=== PATIENT | male | born 1950 | race Caucasian/White ===

== ENCOUNTER 2020-12-14 07:23 | Outpatient (CLI) | payer MEDICARE, SELFPAY ==
--- NOTE | ~2020-12-14 | US_ITS ---
EXAMINATION: US aorta DATE: 12/14/2020 09:08 INDICATION: Abdominal aortic aneurysm screening TECHNIQUE: Grayscale, color Doppler, and pulsed Doppler images of the aorta and common iliac arteries were obtained. COMPARISON: None. FINDINGS: The proximal aorta is nondilated but suboptimally visualized which precludes accurate measurements. T he mid aorta measures 3.0 cm. Unchanged fusiform ectasia of the distal infrarenal aorta measuring up to 3.3 cm in maximal diameter. The right common iliac artery measures 1.3 cm. The left common iliac a rtery measures 1.3 cm. IMPRESSION: 1. Unchanged fusiform ectasia of the infrarenal aorta measuring up to 3.3 cm in maximal diameter. Reviewed, dictated and finalized at location A.
== END 2020-12-14 07:24 | disposition home or self-care (01) ==
LOC: ANHIMG 07:25
PROVIDERS: PCP Family Medicine; Visit Provider Family Medicine
DX: I71.4 Abdominal aortic aneurysm, without rupture (principal)
CPT/HCPCS: 76775

== ENCOUNTER 2021-04-18 09:15 | Outpatient (RCR) | payer MEDICARE, SELFPAY ==
[2021-04-18 11:45] VITALS: BP 130/68; PULSE 64; RESP 20; TEMP 36.7; O2SAT 99
[2021-04-18] MEDS: FAMOTIDINE 20 MG TABLET PO (11:50)
[2021-04-18] MEDS: diphenhydrAMINE HCl CAP 25 MG CAPSULE PO (11:50)
[2021-04-18] MEDS: ACETAMINOPHEN 325 MG TABLET 650 MG PO (11:50)
[2021-04-18 13:22] VITALS: BP 119/68
--- NOTE | 2021-04-19 08:54 | PC.NURSE ---
Patient states he is feeling much better, no longer having a sore throat.
== END 2021-04-18 17:00 ==
LOC: AMCINF 09:15
PROVIDERS: PCP Family Medicine; Referring Provider Family Medicine; Visit Provider Internal Medicine Hematology & Oncology
DX: U07.1 COVID-19 (principal); I10 Essential (primary) hypertension; I25.10 Atherosclerotic heart disease of native coronary artery without angina pectoris
CPT/HCPCS: A9270; M0243; Q0243

== ENCOUNTER 2024-01-22 08:41 | Outpatient (CLI) | payer MEDICARE, SELFPAY | END 2024-01-22 08:42 | disposition home or self-care (01) | LOC: ANHAUDIO 08:45 | PROVIDERS: PCP Family Medicine; Visit Provider Family Medicine | DX: H90.3 Sensorineural hearing loss, bilateral (principal); H93.13 Tinnitus, bilateral | CPT/HCPCS: 92557; 92567 ==

== ENCOUNTER 2024-01-30 14:33 | Outpatient (CLI) | payer MEDICARE, SELFPAY ==
--- NOTE | ~2024-01-30 | US_ITS ---
EXAMINATION: US aorta DATE: 01/30/2024 15:12 INDICATION: Abdominal aortic aneurysm without rupture TECHNIQUE: Grayscale, color Doppler, and pulsed Doppler images of the aorta and common iliac arteries were obtained. COMPARISON: None. FINDINGS: The proximal aorta measures 1.5 cm. The mid aorta measures 1.7 cm. The distal aorta measures 1.6 cm. The right common iliac artery measures 8 mm. The left common iliac artery measures 8 mm. IMPRESSION: 1. Normal caliber abdominal aorta. Reviewed, dictated and finalized at location B.
== END 2024-01-30 14:34 | disposition home or self-care (01) ==
PROVIDERS: PCP Family Medicine; Visit Provider Internal Medicine Cardiovascular Disease
DX: I71.40 Abdominal aortic aneurysm, without rupture, unspecified (principal)
CPT/HCPCS: 76775

== ENCOUNTER 2024-03-29 07:19 | Outpatient (CLI) | payer MEDICARE, SELFPAY ==
--- NOTE | ~2024-03-29 | CT_ITS ---
EXAMINATION: CT abdomen pelvis wo/w con DATE: 03/29/2024 08:30 INDICATION: Gross hematuria TECHNIQUE: Computed tomography (CT) of the abdomen and pelvis was performed without intravenous contr ast. CT of the abdomen and pelvis was then performed with a total of 130 mL Omnipaque-350 intravenous contrast using a double-bolus technique for simultaneous opacification of the renal parenchyma and r enal collecting system. Automated exposure control and iterative reconstruction technique were employ ed. The dose-length product was 1640.68 mGy-cm. COMPARISON: None FINDINGS: Mild atelectasis/scarring at the basilar lingula and right middle lobe. Heart size is normal. Atheros clerotic coronary artery calcifications. Aortic valve calcific location. No pericardial or pleural ef fusion. Small sliding-type hiatal hernia. 11 mm cyst in the left hepatic lobe. Gallbladder, spleen an d pancreas are normal. Bilateral low-attenuation adrenal adenomas the larger on the right measuring 2 .5 x 1.5 cm and measuring 9HU. There are couple 2 mm nonobstructing stones at the lower pole calyces of the right kidney. Minimal symmetric bilateral renal parenchymal enhancement. The bilateral renal c ollecting systems and ureters are opacified in their entirety with no filling defects or urothelial i rregularities. Subtle trabeculation of the bladder wall which could be related to chronic outlet obst ruction from the enlarged prostate which measures 4.0 x 3.9 cm. There are few scattered colonic diver ticula without adjacent inflammatory stranding to suggest diverticulitis. The appendix is not visuali zed. No pericecal inflammatory change to suggest acute appendicitis. No bowel obstruction. There is c alcified atherosclerosis of the aorta and many of the other arteries. 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 No pathologically enlarged abdominal or pelvic lymphad enopathy. Moderate lower thoracic and lower lumbar spondylosis. IMPRESSION: 1. A couple 2 mm nonobstructing right renal stones. 2. Prostatomegaly. 3. 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 Reviewed, dictated and finalized at location B. HOUSE ATTENDANT IMPRESSION: 1. A couple 2 mm nonobstructing right renal stones. 2. Prostatomegaly. 3. 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
--- NOTE | ~2024-03-29 | XR_ITS ---
XR abdomen/kub 1V Ordering provider: Demarcus Ferrell MD History: . GROSS HEMATURIA . Comparison: The FINDINGS: BOWEL: Nonobstructive bowel gas pattern. ORGANOMEGALY: None. SIGNIFICANT PATHOLOGIC CALCIFICATIONS: None. Calcific area is seen adjacent to the disc L4-L5 bilaterally which may be an osteophyte formation. Po ssibility of a stone cannot be excluded. Similar appearances seen on the right side. Follow-up noncon trast CT is advised. OTHER: No free air is seen under the diaphragm. IMPRESSION: NO ACUTE ABDOMINAL FINDINGS. Possibility of a stone at the level of L4-L5 on the left side cannot be excluded. Noncontrast CT eval uation is advised. Reviewed, dictated and finalized at location A. ATRIC LPN IMPRESSION: NO ACUTE ABDOMINAL FINDINGS. Possibility of a stone at the level of L4-L5 on the left side cannot be exclude d. Noncontrast CT evaluation is advised.
[2024-03-29 08:14] LABS: Estimated Glomerular Filt Rate > 60
== END 2024-03-29 07:20 | disposition home or self-care (01) ==
PROVIDERS: PCP Family Medicine; Visit Provider Urology
DX: N20.0 Calculus of kidney (principal); N40.0 Benign prostatic hyperplasia without lower urinary tract symptoms; I72.3 Aneurysm of iliac artery; R31.0 Gross hematuria
CPT/HCPCS: 74018; 74178; Q9967

== ENCOUNTER 2024-05-07 07:57 | Outpatient (CLI) | payer MEDICARE, SELFPAY ==
--- OUTSIDE RECORDS SUMMARY | 2024-06-17 08:02 | XMS_ITS | Encounter Summary ---
Author Organization [facility] Address [address] [place] [address] Phone Care Team Providers Care Ambulatory Nurse Name Role Phone Jayson Hamilton MD Primary Care Provider [phone] Encounter Details Date Type Department Care Team (Latest Contact Info) Description 12/02/2022 Orders Only [facility] Scanning, Provider Social History Tobacco Use Types Packs/Day Years Used Date Smoking Tobacco: Former Cigarettes 1 1 - 1983 Smokeless Tobacco: Never Alcohol Use Standard Drinks/Week Comments Yes 0 (1 standard drink = 0.6 oz pur e alcohol) rarely AUDIT-C Answer Date Recorded Q1: How often do you have a drink containing alcohol? Never 09/10/2022 Q2: How many drinks containi ng alcohol do you have on a typical day when you are drinking? Patient does not drink Q3: How often do you have si x or more drinks on one occasion? Never 09/10/2022 Personal Safety Answer Date Recorded Have you ever been in or are you currently in a harmful physical or emotional relationship or is someone making you feel afraid or unsafe? 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 On simvastatin 20mg q hs TC 109, LDL 46, HDL 39, Tri 139 * Jenni Kulkarni RN - 12/02/2022 11:59 PM CDT Images from the original note were not included. Dariel Collier MD LDL good Same meds I Lmor for pt with results and recommendations. documented in this encounter Plan of Treatment Not on file documented as of this encounter Procedures Procedure Name Priority Date/Time Associated Diagnosis Comments SCAN - LABS 12/02/2022 documented in this encounter Results * SCAN - LABS (12/02/2022) us Provider Scanning Final Result documented in this encounter Visit Diagnoses Not on filedocumented in this encounter Care Teams Ambulatory Nurse Relationship Specialty Start Date End Date Jayson Hamilton MD PCP - General 12/24/16 documented as of this encounter
--- OUTSIDE RECORDS SUMMARY | 2024-06-17 08:02 | XMS_ITS | Referral Summary ---
Author Organization [facility] Address [address] [place] [address] Care Team Providers Care Core Blower Operator Name Role Phone Jayson Hamilton MD Primary Care Provider [phone] [phone] Allergies Active Allergy Reactions Criticality Noted Date Comments Latex Itching,Rash Medium bandaides Medications finasteride (PROSCAR) 5 mg tabletIndication s:benign prostatic hyperplasia with lower urinary tract sx Take 1 tablet (5 mg total) by mouth nightly 2 8 Active irbesartan (AVAPRO) 150 mg tabletIndication s:hypertension Take 1 tablet (150 mg total) by mouth every morning 8 Active metoprolol XL (TOPROL-XL) 50 mg 24 hr tabletIndication s:hypertension Take 1 tablet (50 mg total) by mouth nightly 0 8 Active aspirin 81 mg tabletIndication s:prevention of thrombosis,preve ntion Take 1 tablet (81 mg total) by mouth every morning 0 Active simvastatin (ZOCOR) 20 mg tabletIndication s:hyperlipidemia Take 1 tablet (20 mg total) by mouth nightly 3 8 Active amLODIPine (NORVASC) 5 mg tabletIndication s:hypertension Take 1 tablet (5 mg total) by mouth every morning 0 Active nitroglycerin (Nitrostat) 0.[address] 1 tablet under the tongue ever 5 minutes for up to 3 doses as needed for chest pain. Call 911 if pain persists. 25 tablet 3 2 Active polyethylene glycol (GoLYTELY) 236-22.74-6.74 -5.86 gram solutionIndicati ons:Colonoscopy On 09/09/22 at 6 PM, drink 1/2 jug of the Nulytely/Golyte ly, then on 09/10/2022 at 2:00 AM drink the other 1/2 jug of the Nulytely/Golyte ly until completely gone. 4000 mL 3 Active Additional Information Patient not taking.Reported on 01/07/2023 methIMAzole (TAPAZOLE) 5 mg tablet Take 1 tablet (5 mg total) by mouth daily 3 Active metFORMIN XR (GLUCOPHAGE XR) 500 mg 24 hr tablet Take 1 tablet (500 mg total) by mouth 2 (two) times a day 4 Active Active Problems Problem Noted Date Diagnosed Date Abdominal aortic aneurysm (AAA) without rupture 01/08/2021 Nuclear sclerotic cataract of right eye 11/03/19 21 Overview (11/02/2020): Added automatically from request for surgery [id number] Positive colorectal cancer screening using Colog uard test 10/01/2018 Overview (10/01/2018): Added automatically from request for surgery [id number] Coronary arteriosclerosis in [place] artery 10/01 Overview (08/28/2017): Description: Coronary Artery Disease Hyperlipidemia 10/01/2010 Overview (08/28/2017): Description: Hyperlipidemia Hypertension 10/01/2010 Overview (08/28/2017): Description: Hypertension Immunizations Name Administration Dates Next Due Influenza, Quadrivalent, Rec ombinant, Egg Free, Preservative Free, Intramuscular 02/18/2020,03/15/2019 Influenza, Quadrivalent, Spl it, Preservative Free, Intramuscular 02/18/2018 Influenza, Trivalent, Preservative Free, Intramu scular 03/04/2011 Moderna SARS-CoV-2 Monovalent Vaccination (12+ Y RS) 08/18/2020,07/21/2020 Tdap 11/25/2023 Social History Tobacco Use Types Packs/Day Years Used Date Smoking Tobacco: Former Cigarettes 1 1 - 1983 Smokeless Tobacco: Never Tobacco Cessation:Counseling Given: Not Answered Alcohol Use Standard Drinks/Week Comments Yes 0 [...] on file 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 Gender Identity Not on file Sexual Orientation Not on file Last Filed Vital Signs Vital Sign Reading Time Taken Comments Blood Pressure 148/78 12/31/2023 9:59 AM CDT Pulse 59 12/31/2023 9:59 AM CDT Temperature 36 ??C (96.8 ??F) 09/10/2022 8:46 AM CDT Respiratory Rate 16 09/10/2022 9:26 AM CDT Oxygen Saturation 96% 12/31/2023 9:59 AM CDT Inhaled Oxygen Concentration - - Weight 87.1 kg (192 lb) 12/31/2023 9:59 AM CDT Height 172.7 cm (5' 8 ) 12/31/2023 9:59 AM CDT Body Mass Index 29.19 12/31/2023 9:59 AM CDT Plan of Treatment Not on file Medical Devices Implanted Type Area Wave Solder Offbearer Device Identifier Shelf Expiration Date Model / Serial / Lot [employer] [id number] Lens Iol Tecnis Smplcty 1-Pc Clr [place] 17.5 Diopter - [id number] - [id number] Implanted:Qty: 1 on 11/28/2020 by Marissa Henning MD at [facility] Lens Right: Lens [employer] 06/24/2023 [id number] / [id number] / [employer] [id number] Lens Iol Tecnis Smplcty 1-Pc Clr [place] 17.5 Diopter - [id number] - [id number] Implanted:Qty: 1 on 01/30/2021 by Marissa Henning MD at [facility] Medicine Lens Left: Eye Chloe [employer] 06/24/2023 [id number] / [id number] / 0 Stent Stent Heart Explanted Type Area Wave Solder Offbearer Device Identifier Shelf Expiration Date Model / Serial / Lot Chloe [employer] [id number] Lens Iol Tecradha Dossplcty 1-Pc Clr Cidra 17.5 Diopter - [id number] - [id number] Explanted:Qty: 1 on 11/28/2020 by Marissa Henning MD at [facility] Lens Right: Lens Chloe [employer] 06/24/2023 [id number] / [id number] / Procedures Procedure Name Priority Date/Time Associated Diagnosis Comments COLONOSCOPY 09/10/2022 7:56 AM CDT from Last 3 Months or Most Recently Relevant to Health Maintenance Results * COLONOSCOPY (09/10/2022 7:56 AM CDT) Anatomical Region Laterality Modality Other Narrative Procedure Note Yolanda Varela MD PhD - 09/10/2022 7:56 AM CDT [facility] Patient Name: Xander Burrell Procedure Date: 09/10/2022 7:56 AM Date of : 1950 Admit Type: Outpatient Age: 72 Gender: Male Attending MD: Yolanda Varela M.D. Room: [facility] ENDOSCOPY ROOM 3 Note Status: Finalized Procedure: Colonoscopy Indications: High risk colon cancer surveillance: Personalhistory of colonic polyps Referring MD: Jayson Hamilton M.D. Providers: Yolanda Varela M.D. Medicines: Monitored Anesthesia Care Complications: No immediate complications. Estimated Blood Loss: Estimated blood loss was minimal. Procedure: Pre-Anesthesia Assessment: - Immediately prior to administration ofmedications, the patient was re-assessed for adequacy to receive sedatives. - The risks and benefits of the procedure and the sedation options and risks were discussed with the patient. All questions were answered and informed consent was obtained. The benefits, risks and alternatives of theprocedure and sedation were discussed and informed consentwas obtained. All questions were answered. Please referto the signed informed consent document in the medical record. The scope was passed under direct vision.The CF [id number] endoscope was introduced through the anus and advanced to the terminal ileum, with identification of the appendiceal orifice and IC valve. The colonoscopy was technically difficultand complex due to poor endoscopic visualization. Successful completion of the procedure was aided by lavage. The colonoscopy was technically difficultand complex due to significant looping. Successful completion of the procedure was aided by performing the maneuvers documented (below) in this report.The quality of the bowel preparation was adequate. The quality of the bowel preparation was evaluatedusing the BBPS ([place] Bowel Preparation Scale) withscores of: Right Colon = 2 (minor amount of residual staining, small fragments of stool and/or opaque liquid, but mucosa seen well), Transverse Colon = 3 (entire mucosa seen well with no residual staining, small fragments of stool or opaque liquid) and Left Colon = 2 (minor amount of residual staining, small fragments of stool and/or opaque liquid, but mucosa seen well). The total BBPS score equals 7.The bowel preparation used was GoLYTELY via split dose instruction. Findings: The terminal ileum appeared normal. Two sessile polyps were found in the ascending colon. The polyps were3 to 4 mm in size. These polyps were removed with a jumbo cold forceps. Resection and retrieval were complete. Estimated blood loss wasminimal. A 3 mm polyp was found in the rectum. The polyp was sessile. Thepolyp was removed with a jumbo cold forceps. Resection and retrieval were complete. Estimated blood loss was minimal. An 10 mm polyp was found in the rectum. The polyp was sessile. Thepolyp was removed with a cold snare. Resection and retrieval were complete. Estimated blood loss was minimal. Multiple small and large-mouthed diverticula were found in thesigmoid colon and cecum. Internal hemorrhoids were found during retroflexion. Impression: - The examined portion of the ileum was normal. - Two 3 to 4 mm polyps in the ascending colon,removed with a jumbo cold forceps. Resected andretrieved. - One 3 mm polyp in the rectum, removed with ajumbo cold forceps. Resected and retrieved. - One 10 mm polyp in the rectum, removed with acold snare. Resected and retrieved. - Diverticulosis in the sigmoid colon and in thececum. - Internal hemorrhoids. Recommendation: - [facility] Attending Participation: I personally performed the entire procedure. Electronically signed by Yolanda Varela MD Yolanda Varela M.D. 09/10/2022 8:49:33 AM . Number of Addenda: 0 Note Initiated On: 09/10/2022 7:56 AM Recognized by the [place] [employer] for promoting quality in endoscopy us Yolanda Varela MD PhD ENDOSCOPY PROCEDURES Final Resu lt from Last 3 Months or Most Recently Relevant to Health Maintenance Insurance MEDICARE [facility] MEDICARE [facility] MEDICARE [facility] Advance Directives For more information, please contact: [phone] * Full Code (Latest Code Status on File) Date Activated Date Inactivated Comments 09/10/2022 7:11 AM 09/10/2022 1:38 PM * Full Code Date Activated Date Inactivated Comments 01/30/2021 6:34 AM 01/30/2021 2:41 PM * Full Code Date Activated Date Inactivated Comments 11/27/2020 7:57 PM 11/28/2020 12:38 PM * Full Code Date Activated Date Inactivated Comments 11/05/2018 10:58 AM 11/05/2018 5:50 PM Care Teams Core Blower Operator Relationship Specialty Start Date End Date Jayson Hamilton MD PCP - General 12/24/16
--- OUTSIDE RECORDS SUMMARY | 2024-06-17 08:02 | XMS_ITS | Encounter Summary ---
Author Organization [facility] Address [address] [place] [address] Phone Care Team Providers Care Slot Shift Supervisor Name Role Phone Jayson Hamilton MD Primary Care Provider [phone] [phone] Encounter Details Date Type Department Care Team (Latest Contact Info) Description 10/09/2020 Orders Only [facility] Scanning, Provider Social History Tobacco Use Types Packs/Day Years Used Date Smoking Tobacco: Former Smokeless Tobacco: Never Comments:quit age 30 Alcohol Use Standard Drinks/Week Comments Yes 0 (1 standard drink = 0.6 oz pur e alcohol) rarely Sex and Gender Information Value Date Recorded Sex Assigned at Not on file 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 Gender Identity Not on file Sexual Orientation Not on file documented as of this encounter Progress Notes * Jenni Kulkarni RN - 10/09/2020 11:59 PM CDT Labs from PCP, T4 and TSH * Dariel Collier MD - 10/09/2020 11:59 PM CDT normal documented in this encounter Plan of Treatment Not on file documented as of this encounter Procedures Procedure Name Priority Date/Time Associated Diagnosis Comments SCAN - LABS 10/09/2020 documented in this encounter Results * SCAN - LABS (10/09/2020) us Provider Scanning Final Result documented in this encounter Visit Diagnoses Not on filedocumented in this encounter Care Teams Slot Shift Supervisor Relationship Specialty Start Date End Date Jayson Hamilton MD PCP - General 12/24/16 documented as of this encounter
--- OUTSIDE RECORDS SUMMARY | 2024-06-17 08:02 | XMS_ITS | Clinical Summary ---
Author Organization [facility] Address [address] [place] [address] Care Team Providers Care Data Reduction Technician Name Role Phone Jayson Hamilton MD Primary Care Provider [phone] [phone] Allergies Active Allergy Reactions Criticality Noted Date [...] (11/02/2020): Added automatically from request for surgery [id number] Positive colorectal cancer screening using Colog uard test 10/01/2018 Overview (10/01/2018): Added automatically from request for surgery [id number] Coronary arteriosclerosis in [place] artery 10/01 Overview (08/28/2017): Description: Coronary Artery Disease Hyperlipidemia 10/01/2010 Overview (08/28/2017): Description: Hyperlipidemia Hypertension 10/01/2010 Overview (08/28/2017): Description: Hypertension Immunizations Name Administration Dates Next Due Influenza, Quadrivalent, Rec ombinant, Egg Free, Preservative Free, Intramuscular 02/18/2020,03/15/2019 Influenza, Quadrivalent, Spl it, Preservative Free, Intramuscular 02/18/2018 Influenza, Trivalent, Preservative Free, Intramu scular 03/04/2011 Moderna SARS-CoV-2 Monovalent Vaccination (12+ Y RS) 08/18/2020,07/21/2020 Tdap 11/25/2023 Surgical History Surgery Date Site/Laterality Comments APPENDECTOMY 05/19/1959 - 05/18/[address] ENT PLACEMENT 05/19/2008 - 05/18/2009 RCA ABDOMINAL ADHESION SURGERY age 17 CATARACT EXTRACTION 11/16/2020 - 12/16/2020 Right Medical History Medical History Date Comments CAD (coronary artery disease) 2018 Xi ence 2.5x23mm ALKA to RCA by Dr. 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 Gender Identity Not on file Sexual Orientation Not on file Obstetrics History Last Filed Vital Signs Vital Sign Reading [...] 12/31/2023 9:59 AM CDT Plan of Treatment Health Maintenance Due Date Last Done Comments Depression Screening 1950 Hepatitis C Screening 1950 Hepatitis B Screening 1968 Zoster Vaccine (1 of 2) 2000 Pneumococcal vaccine 65+ (1 of 1 - PCV) 2015 Well Visit 65+ 2015 Fall Risk Assessment 09/11/2023 09/10/2022 Covid-19 Vaccine (3 - 2023-2 5 season) 2024 08/18/2020, 07/21/2020 Influenza Vaccine (#1) 2024 , 03/15/2019, 02/18/2018, Additional history exists Colon Cancer Screening-Colonoscopy 09/10/2032 09/10/2022, 11/05/2018 DTaP/Tdap/Td Vaccine (2 - Td or Tdap) 11/24/2033 11/25/2023 Colon Cancer Screening-CT Colonography Discontinued 09/10/2022, 11/05/2018 Colon Cancer Screening-DNA Stool Discontinued 09/11/19, 11/05/2018 Colon Cancer Screening-FIT Discontinued 09/10/2022, Colon Cancer Screening-Sigmoidoscopy Discontinued 09/10/2022, 11/05/2018 Abdominal Aortic Aneurysm (A AA) Screen Completed 01/29/2024, 01/07/2024, 12/31/2023, Additional history exists Medical Devices Implanted Type Area Carbide Tool Maker Device Identifier Shelf Expiration Date Model / Serial / Lot Chloe [email or web address] [id number] Lens Iol Tecnis Smplcty 1-Pc Clr [place] 17.5 Diopter - [id number] - [id number] Implanted:Qty: 1 on 11/28/2020 by Marissa Henning MD at [facility] Lens Right: Lens [employer] 06/24/2023 [id number] / [id number] / [employer] [id number] Lens Iol Tecnis Smplcty 1-Pc Clr [place] 17.5 Diopter - [id number] - [id number] Implanted:Qty: 1 on 01/30/2021 by Marissa Henning MD at [facility] Lens Left: Eye [employer] 06/24/2023 [id number] / [id number] / 0 Stent Stent Heart Explanted Type Area Carbide Tool Maker Device Identifier Shelf Expiration Date Model / Serial / Lot [employer] [id number] Lens Iol Tecnis Smplcty 1-Pc Clr [place] 17.5 Diopter - [id number] - [id number] Explanted:Qty: 1 on 11/28/2020 by Marissa Henning MD at [facility] Lens Right: Lens [employer] 06/24/2023 [id number] / [id number] / Procedures Procedure Name Priority Date/Time Associated [...] Male Attending MD: Yolanda Varela M.D. Room: [facility] ENDOSCOPY ROOM 3 Note Status: Finalized Procedure: [...] scope was passed under direct vision.The CF [id number] endoscope was introduced through the anus and [...] the bowel preparation was evaluatedusing the BBPS ([place] Bowel Preparation Scale) withscores of: Right Colon [...] Recommendation: - Repeat colonoscopy in 2-3 years forsurveillance. Attending Participation: I personally performed the entire procedure. Electronically signed by Yolanda Varela MD Yolanda Varela M.D. 09/10/2022 8:49:33 AM . Number of Addenda: 0 Note Initiated On: 09/10/2022 7:56 AM Recognized by the [place] [employer] for promoting quality in endoscopy us Yolanda Varela MD PhD ENDOSCOPY PROCEDURES Final Resu lt from Last 3 Months or Most Recently Relevant to Health Maintenance Insurance MEDICARE [facility] MEDICARE [facility] MEDICARE [facility] Advance Directives For more information, please contact: [phone] * Full Code (Latest Code Status on File) Date Activated Date Inactivated Comments 09/10/2022 7:11 AM 09/10/2022 1:38 PM * Full Code Date Activated Date Inactivated Comments 01/30/2021 6:34 AM 01/30/2021 2:41 PM * Full Code Date Activated Date Inactivated Comments 11/27/2020 7:57 PM 11/28/2020 12:38 PM * Full Code Date Activated Date Inactivated Comments 11/05/2018 10:58 AM 11/05/2018 5:50 PM Care Teams Data Reduction Technician Relationship Specialty Start Date End Date Jayson Hamilton MD PCP - General 12/24/16
--- OUTSIDE RECORDS SUMMARY | 2024-06-17 08:02 | XMS_ITS | Encounter Summary ---
Author Organization [facility] Address [address] [place] [address] Phone Care Team Providers Care Helicopter Mechanic Name Role Phone Jayson Hamilton MD Primary Care Provider [phone] [phone] Encounter Details Date Type Department Care Team (Latest Contact Info) Description 11/25/2018 Orders Only [facility] Scanning, Provider Social History Tobacco Use Types Packs/Day Years Used Date Smoking Tobacco: Former Smokeless Tobacco: Never Comments:quit age 30 Alcohol Use Standard Drinks/Week Comments Yes 0 (1 standard drink = 0.6 oz pur e alcohol) rarely Sex and Gender Information Value Date Recorded Sex Assigned at Not on file 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 Gender Identity Not on file Sexual Orientation Not on file documented as of this encounter Progress Notes * Georgie Morales RN - 11/25/2018 11:59 PM CDT OV today Note\ requested labs * Dariel Collier MD - 11/25/2018 11:59 PM CDT Lab good documented in this encounter Plan of Treatment Not on file documented as of this encounter Procedures Procedure Name Priority Date/Time Associated Diagnosis Comments SCAN - LABS 11/25/2018 documented in this encounter Results * SCAN - LABS (11/25/2018) us Provider Scanning Final Result documented in this encounter Visit Diagnoses Not on filedocumented in this encounter Care Teams Helicopter Mechanic Relationship Specialty Start Date End Date Jayson Hamilton MD PCP - General 12/24/16 documented as of this encounter
== END 2024-05-07 07:58 ==
LOC: ANHAUDIO 06-17 07:58
PROVIDERS: PCP Family Medicine; Visit Provider Family Medicine
DX: H91.90 Unspecified hearing loss, unspecified ear (principal)
CPT/HCPCS: V5261

== ENCOUNTER 2024-05-26 12:48 | Outpatient (CLI) | payer MEDICARE, SELFPAY ==
[2024-05-26 15:32] LABS: Anion Gap 8 mmol/L (4-12); Blood Urea Nitrogen 13 mg/dL (9-20); Calcium 9.4 mg/dL (8.4-10.2); Carbon Dioxide 26 mmol/L (22-30); Chloride 105 mmol/L (98-107); Estimated Glomerular Filt Rate > 60; Glucose 78 mg/dL (65-110); Potassium 4.3 mmol/L (3.4-5.0); Sodium 139 mmol/L (137-145)
== END 2024-05-26 12:49 | disposition home or self-care (01) ==
LOC: ANHSURGERY 12:56
PROVIDERS: Anesthesiology; PCP Family Medicine; Visit Provider Urology
DX: R97.20 Elevated prostate specific antigen [PSA] (principal); E11.9 Type 2 diabetes mellitus without complications; Z79.899 Other long term (current) drug therapy
CPT/HCPCS: 36415; 80048; 87077; 87086; 87186

== ENCOUNTER 2024-06-01 00:22 | Day surgery (SDC) | payer MEDICARE, SELFPAY ==
[2024-05-18 09:32] VITALS: BMI 28.5
--- NOTE | 2024-05-18 09:53 | PC.NURSE ---
Report to the Outpatient Waiting Room, entrance under the green pavilion located off [facility], at time __0615am on date __06/01/24 . Planned Procedure Time: _0815 .? Time changes happen often and if your time is changed the preop area will call you the afternoon before. - You and your visitor will be asked to self-screen and do not enter if you have any COVID symptoms. Please call surgeon if you need to reschedule. - A mask is optional within the hospital at this time. Patients may have clear liquids (water, carbonated beverages, clear teas, apple juice) until 3 hours prior to surgery with a maximum of 20 ounces. - No food from midnight until time of surgery and no smoking. This includes no chewing gum, candy or mints.(05:15am) Take only the following medications with a SIP of water on the morning of surgery: ___Amlodipine DO NOT STOP ANY OF YOUR OTHER PRESCRIPTION MEDICATIONS PRIOR TO SURGERY EXCEPT THE FOLLOWING Medications to discontinue per physician ____Stop Aspirin for [address] Ferrell Date to take last dose____05/24/24 Please no make-up, nail lithuanian, hairspray, perfume, deodorant, or body powder the day of surgery.? No jewelry (including any body piercings) or valuables the day of surgery, leave them at home.? Please take a shower or bath the night before, or the morning of, surgery with an antibacterial soap.? Wear comfortable, loose fitting clothing.? - Jewelry must be removed prior to entering the operating room.? Rings and piercings that are not removed may be cut off. - The hospital will not accept responsibility for valuables.? - Please leave all valuables, including medications, at home the day of surgery. If you are going home after surgery, a licensed party bus driver must drive you home.? - NO public transportation without another adult if you receive anesthesia. - We recommend that an adult stay with you for 24 hours following discharge. - We also recommend that you do not drive, make important decision, drink alcoholic beverages, or take any drugs that were not prescribed by your health care provider for at least 24 hours after your discharge time. Follow any additional instructions given to you from your surgeon. Telephone instructions given to __Patient and asked if any additional questions and then verbalized understanding. Patient advised to call surgeon office or pre surgery nurse liaison [phone] if any additional questions.
[2024-06-01 07:23] VITALS: BP 147/94; PULSE 63; RESP 20; TEMP 36.6; O2SAT 99
--- NOTE | 2024-06-01 07:53 | P.PNAN_ITS ---
Anes - Initial Pre Proc Eval Procedure: Operation Date: 06/01/24 09:15 Proposed Procedures p Trans Rectal Ultrasound Fusion Guided Prostate Biopsy - Demarcus Ferrell MD Date/Time: 06/01/24 07:53 Surgeon: Demarcus Ferrell MD Pre Op Diagnosis: Elev PSA Patient Data Age: 73 Gender: M Height: 1.75 m Weight: 87.54 kg Allergies Allergy/AdvReac Type Severity Reaction Status Date / Time latex Allergy Intermediate Skin Verified 05/18/24 09:20 Reaction lisinopril Allergy Intermediate Skin Verified 05/18/24 09:20 Reaction tamsulosin Allergy Intermediate Unknown Verified 05/18/24 09:20 Home Medications ?Medication ?Instructions ?Recorded ?Confirmed ?Type aspirin 81 mg tablet,delayed 81 mg PO DAILY 04/23/19 05/18/24 History release (Adult Low Dose Aspirin) nitroglycerin 0.4 mg sublingual 0.4 mg sublingual Q5M PRN chest 03/01/22 4 History tablet pain amlodipine 5 mg tablet See Rx Instructions .Route 01/20/24 05/18/24 Rx .COMPLEX #90 tabs finasteride 5 mg tablet 5 mg PO DAILY #90 tabs 02/16/24 05/18/24 Rx irbesartan 150 mg tablet See Rx Instructions .Route 02/16/24 05/18/24 Rx .COMPLEX #90 tabs metoprolol succinate 50 mg 50 mg PO DAILY #90 tabs 02/16/24 05/18/24 Rx tablet,extended release 24 hr simvastatin 20 mg tablet See Rx Instructions .Route 02/16/24 05/18/24 Rx .COMPLEX #90 tabs metformin 500 mg tablet,extended 500 mg PO HS 05/18/24 05/18/24 History release 24 hr methimazole 5 mg tablet 5 mg PO DAILY #90 tabs 05/31/24 Rx Patient hx anesthesia problems: none Family hx anesthesia problems: none Results Review: All pre-operative results and documents have been reviewed as part of the pre- operative evaluation. [facility] Past Medical History Medical History (Updated 06/01/24 @ 07:53 by Gopi Lopez MD) CAD (coronary artery disease) Graves disease Aortic stenosis Overweight (BMI 25.0-29.9) Surgical History Surgical History History of cataract surgery (~02/2021) right History of cataract surgery (~12/2020) left Family History Family History Mother Diabetes mellitus Sibling Diabetes mellitus Father Hypertension Family history of Parkinson's disease Other Acute myocardial infarction Family history of malignant neoplasm of breast Social History Social History Social History: Caffeine-none Smoking packs per day: 1.5 Smoking cigarettes per day: 30.0 Years smoked: 13 Smoking pack-years: 19.50 Smoking status: Former smoker Tobacco type: cigarettes Smoking end date: 05/19/83 Alcohol intake: never Substance use: current Substance use type: marijuana Other substance usage details: smokes daily Lack of Transportation: No Lack of Food: Never True Current Housing: I Have Housing Concerned About Future Housing: No Difficulty Paying Gas/Electric Bills: No Difficulty Paying for Meds: No Currently Unemployed: No Education: Bachelor's Degree Difficulty w/ Childcare or Family Care: No Living arrangements: with family Additional living arrangements comments: Spiritual care concerns: No Anes - Eval Final PreProcedure Day of Procedure 06/01/24 07:53 Patient weight: overweight Heart: regular rate and rhythm Lungs: clear to auscultation Airway: Mallampati scale class 1 Neurological: alert and oriented Last oral intake: >/= 8 hours ASA classification: III Emergent: no Anesthetic plan: proceed Anesthesia type and monitoring: general GIVS and standard monitoring Results Review: All pre-operative results and documents have been reviewed as part of the pre- operative evaluation. Informed Consent: The patient's anesthetic plan and its attendant risks and benefits were discussed with the patient/family/POA. Questions were solicited and answers provided to the satisfaction of the patient/family/POA.
[2024-06-01] MEDS: LACTATED RINGERS 1,000 ML 30 ML IV CONT (08:25)
--- NOTE | 2024-06-01 08:35 | WPDHPUPDATE1 ---
History and Physical Update Update Date/Time: 06/01/24 08:35 History and Physical has been reviewed, including an updated exam of the patient. There are NO changes in the patient's condition. Risks, benefits, and alternatives have been discussed and questions answered. Patient agrees to proceed with procedure.
[2024-06-01 08:51] LABS: Glucose Point of Care 118 mg/dl (65-105)
--- NOTE | 2024-06-01 09:11 | SUR.PREOP ---
0800-pt has advance directive form he wants witnessed-care coordination notified and complied. Pt and both state for today's elective procedure he desires resuscitation indicated.
[2024-06-01] MEDS: ceFAZolin 2 GM/D5W 50 ML 2 GM/50 ML BAG IVPB (09:21)
--- NOTE | 2024-06-01 09:36 | W.PM.PROC2 ---
Procedure Note - Detailed Date of Procedure 06/01/24 Pre-op Diagnosis Elev PSA Post-op Diagnosis Same Procedure Performed uronav us and prostate biopsy Surgeon Demarcus Ferrell MD Anesthesia General Description of Procedure Patient was taken to the operative suite correctly identified. He was placed in lateral decubitus position. Anesthesia was obtained. Transrectal ultrasound was then performed on the MRI image was fused to the ultrasound machine. Three biopsies were taken from the region of interest. Twelve standard cores were taken. Patient tolerated procedure well without any complications. He will call for path results 1 week. Patient was taken to recovery room in stable condition. This completes dictation. Please send a copy of op note to my office. Estimated Blood Loss 0 Drains No Packing No Pathology Yes Complications No immediate complications Condition Stable Disposition PACU
[2024-06-01 09:40] VITALS: BP 143/70; PULSE 75; RESP 14
[2024-06-01 10:06] LABS: Glucose Point of Care 117 mg/dl (65-105)
[2024-06-01 10:10] VITALS: BP 142/67; PULSE 67; RESP 14; O2SAT 100
[2024-06-01 10:31] VITALS: BP 142/70; PULSE 64; RESP 14
--- OUTSIDE RECORDS SUMMARY | 2024-06-08 01:21 | XMS_ITS | Continuity of Care Document ---
Author Organization [facility] Address [address] [place] [id number] Encounter [facility] Financial Number [id number] Date(s): 04/10/24 - 04/10/[address] [id number] Discharge Disposition: Home or Self Care Attending Physician: Demarcus Ferrell MD Referring Physician: Demarcus Ferrell MD Note * Event Display: Authorization to Treat Insurance Providers Guarantor name: KOJO DASILVA Health Plan Information #: 2 Payer: Medicare Supplement Member Number: [id number] Policy Number: NA Health Plan Information #: 1 Payer: Medicare Member Number: [id number] Policy Number: NA
== END 2024-06-01 10:36 | disposition home or self-care (01) ==
PROVIDERS: PCP Family Medicine; Visit Provider Urology
PROC: (CPT 55700; principal; 2024-06-01 09:15)
DX: C61 Malignant neoplasm of prostate (principal); N41.1 Chronic prostatitis; I25.10 Atherosclerotic heart disease of native coronary artery without angina pectoris; E05.00 Thyrotoxicosis with diffuse goiter without thyrotoxic crisis or storm; I11.0 Hypertensive heart disease with heart failure; I50.9 Heart failure, unspecified; F12.90 Cannabis use, unspecified, uncomplicated; Z98.890 Other specified postprocedural states; Z79.84 Long term (current) use of oral hypoglycemic drugs; Z79.82 Long term (current) use of aspirin; Z87.891 Personal history of nicotine dependence; Z80.3 Family history of malignant neoplasm of breast; Z82.49 Family history of ischemic heart disease and other diseases of the circulatory system
CPT/HCPCS: 76872; 55700; 82948; G0416; J0690; J2003; J2704; J3010; J7120

== ENCOUNTER 2024-06-18 13:34 | Outpatient (CLI) | payer MEDICARE, SELFPAY ==
--- NOTE | ~2024-06-18 | PE_ITS ---
EXAMINATION: PET_PETPSMAST_PT DATE: 06/18/2024 15:37 INDICATION: Prostate cancer TECHNIQUE: 5.414 mCi of Illucix Ga-68([id number]) was administered i.v. Low dose computed miky graphy (CT) images were acquired from the base of the brain to the base of the brain to the proximal thighs for attenuation correction and anatomic localization. Positron emission tomography (PET) image s were acquired in the same distribution beginning 86 minutes after injection. Images including fused PET/CT images were reconstructed in axial, coronal, and sagittal planes. Automated exposure control technique was employed. The dose-length product was 1070.67mGy-cm. COMPARISON: CT abdomen pelvis dated 03/29/2024 FINDINGS: Head/neck: Typical pattern of symmetric physiologic increased activity in the lacrimal, parotid and submandibula r glands as well as along the mucosa of the nasal and oral cavities, pharynx and hypopharynx. No path ologically enlarged cervical lymphadenopathy or suspicious foci of increased uptake in the visualized head or neck. Chest: 6 mm right middle lobe nodule without associated PSMA activity. Mild discoid atelectasis at the lingu la and right middle lobe. Heart size is normal. Atherosclerotic coronary artery calcification is. No pericardial effusion. Thoracic aorta is normal in caliber. Small sliding-type hiatal hernia. No patho logically enlarged or PSMA avid thoracic lymphadenopathy. Abdomen/pelvis/proximal thighs: Physiologic renal accumulation and excretion of activity in the kidneys, bladder and along portions o f ureters. Prostatomegaly. There is focal increased PSV may activity at the left posterior margin of the prostate with maximal SUV of 20.8. Normal degree and slightly heterogenous pattern of increased u ptake throughout the liver and spleen without radiologic correlate or dominant PSMA avid lesion. The gallbladder, pancreas and bilateral adrenal glands are normal. Moderate uptake scattered throughout t he bowels with typical duodenal and proximal jejunal predominance and without radiologic correlate, a lso likely physiologic. There is a small focus of increased uptake with maximal SUV of 4.5 cm with a 6 mm right perirectal lymph node. There is a 5 mm left obturator lymph node with mildly increased upt katherine with maximal SUV of 2.2. Both are suspicious for metastatic disease. No other abnormal foci of in creased uptake or pathologically enlarged lymphadenopathy in the abdomen, pelvis or proximal thighs. Musculoskeletal: No suspicious lytic, blastic or PSMA avid bone lesions. IMPRESSION: 1. Region of prominent increased activity at the left posterior margin of the enlarged prostate consi stent with primary prostate cancer. 2. Mild increased PSMA activity such with 6 mm perirectal and 5 mm left obturator lymph nodes which are concerning for metastatic disease. 3. No other lesions suspicious for metastatic disease in the more cephalad pelvis, abdomen, chest or neck. 4. 6 mm right middle lobe nodule without PSMA activity. If the patient is low risk for lung cancer, n o follow-up is needed. If the patient is high risk (i.e., history of smoking or asbestos or significa nt radiation exposure), optional follow-up chest CT could be considered at 12 months. Reviewed, dictated and finalized at location A. YARD DERRICK OPERATOR IMPRESSION: 1. Region of prominent increased activity at the left posterior margin of the e nlarged prostate consistent with primary prostate cancer. 2. Mild increased PSMA activity such with 6 mm perirectal and 5 mm left obtura tor lymph nodes which are concerning for metastatic disease. 3. No other lesions suspicious for metastatic disease in the more cephalad pelv is, abdomen, chest or neck. 4. 6 mm right middle lobe nodule without PSMA activity. If the patient is low r isk for lung cancer, no follow-up is needed. If the patient is high risk (i.e., history of smoking or asbestos or significant radiation exposure), optional fo llow-up chest CT could be considered at 12 months.
--- OUTSIDE RECORDS SUMMARY | 2024-06-18 13:39 | XMS_ITS | Clinical Summary ---
Author Organization [facility] Address [address] [place] [address] Care Team Providers Care Bus System Operator Name Role Phone Jayson Hamilton MD Primary Care Provider [phone] [phone] Allergies Active Allergy Reactions Criticality Noted Date [...] (11/02/2020): Added automatically from request for surgery [id number] Positive colorectal cancer screening using Colog uard test 10/01/2018 Overview (10/01/2018): Added automatically from request for surgery [id number] Coronary arteriosclerosis in 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 Gender Identity Not on file Sexual Orientation [...] history exists Medical Devices Implanted Type Area Survey Data Technician Device Identifier Shelf Expiration Date Model / Serial / Lot Chloe [employer] [id number] Lens Iol Tecnis Smplcty 1-Pc Clr [place] 17.5 Diopter - [id number] - [id number] Implanted:Qty: 1 on 11/28/2020 by Marissa Henning MD at [facility] Lens Right: Lens [employer] 06/24/2023 [id number] / [id number] / [employer] [id number] Lens Iol Tecnis Smplcty 1-Pc Clr [place] 17.5 Diopter - [id number] - [id number] Implanted:Qty: 1 on 01/30/2021 by Marissa Henning MD at [facility] Lens Left: Eye [employer] 06/24/2023 [id number] / [id number] / 0 Stent Stent Heart Explanted Type Area Survey Data Technician Device Identifier Shelf Expiration Date Model / Serial / Lot [employer] [id number] Lens Iol Tecnis Smplcty 1-Pc Clr [place] 17.5 Diopter - [id number] - [id number] Explanted:Qty: 1 on 11/28/2020 by Marissa Henning MD at [facility] Lens Right: Lens [employer] 06/24/2023 [id number] / [id number] / Procedures Procedure Name Priority Date/Time Associated [...] Male Attending MD: Yolanda Varela M.D. Room: [facility] ENDOSCOPY ROOM 3 Note Status: Finalized [...] scope was passed under direct vision.The CF [id number] endoscope was introduced through the anus and [...] the bowel preparation was evaluatedusing the BBPS ([place] Bowel Preparation Scale) withscores of: Right Colon [...] On: 09/10/2022 7:56 AM Recognized by the [place] [employer] for promoting quality in endoscopy us Yolanda Varela MD PhD ENDOSCOPY PROCEDURES Final Resu lt from Last 3 Months or Most Recently Relevant to Health Maintenance Insurance MEDICARE [facility] MEDICARE [facility] MEDICARE [facility] Advance Directives For more information, please contact: [phone] * Full Code (Latest Code Status on File) Date Activated Date Inactivated Comments 09/10/2022 7:11 AM 09/10/2022 1:38 PM * Full Code Date Activated Date Inactivated Comments 01/30/2021 6:34 AM 01/30/2021 2:41 PM * Full Code Date Activated Date Inactivated Comments 11/27/2020 7:57 PM 11/28/2020 12:38 PM * Full Code Date Activated Date Inactivated Comments 11/05/2018 10:58 AM 11/05/2018 5:50 PM Care Teams Bus System Operator Relationship Specialty Start Date End Date Jayson Hamilton MD PCP - General 12/24/16
--- OUTSIDE RECORDS SUMMARY | 2024-06-18 13:39 | XMS_ITS | Referral Summary ---
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 Lens Right: Lens Crocodile Gold 06/24/2023 [id number] / [id number] / Crocodile Gold [id number] Lens Iol Tecnis Smplcty 1-Pc Clr [place] 17.5 Diopter - [id number] - [id number] Implanted:Qty: 1 on 01/30/2021 by Marissa Henning MD at [facility] Medicine Lens Left: Eye Chloe [employer] 06/24/2023 [id number] / [id number] / 0 Stent Stent Heart Explanted Type Area Sewing Machine Operator Device Identifier Shelf Expiration Date Model / Serial / Lot Chloe [employer] [id number] Lens Iol Tecradha Dossplcty 1-Pc Clr [place] 17.5 Diopter - [id number] - [id number] Explanted:Qty: 1 on 11/28/2020 by Marissa Henning MD at [facility] Lens Right: Lens Chloe [employer] 06/24/2023 [id number] / [id number] / Procedures Procedure Name Priority Date/Time Associated [...] Attending MD: Yolanda Varela M.D. Room: [facility] ENDOSCOPY ROOM 3 Note Status: Finalized [...] scope was passed under direct vision.The CF [id number] endoscope was introduced through the anus and [...] the bowel preparation was evaluatedusing the BBPS ([place] Bowel Preparation Scale) withscores of: Right Colon [...] Recommendation: - [facility] Attending Participation: I personally performed the entire procedure. Electronically signed by Yolanda Varela MD Yolanda Varela M.D. 09/10/2022 8:49:33 AM . Number of Addenda: 0 Note Initiated On: 09/10/2022 7:56 AM Recognized by the [employer] for promoting quality in endoscopy us Yolanda Varela MD PhD ENDOSCOPY PROCEDURES Final Resu lt from Last 3 Months or Most Recently Relevant to Health Maintenance Insurance MEDICARE [facility] MEDICARE [facility] MEDICARE [facility] Advance Directives For more information, please contact: [phone] * Full Code (Latest Code Status on File) Date Activated Date Inactivated Comments 09/10/2022 7:11 AM 09/10/2022 1:38 PM * Full Code Date Activated Date Inactivated Comments 01/30/2021 6:34 AM 01/30/2021 2:41 PM * Full Code Date Activated Date Inactivated Comments 11/27/2020 7:57 PM 11/28/2020 12:38 PM * Full Code Date Activated Date Inactivated Comments 11/05/2018 10:58 AM 11/05/2018 5:50 PM Care Teams Cras Relationship Specialty Start Date End Date Jayson Hamilton MD PCP - General 12/24/16
--- OUTSIDE RECORDS SUMMARY | 2024-06-18 13:39 | XMS_ITS | Encounter Summary ---
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
--- OUTSIDE RECORDS SUMMARY | 2024-06-18 13:39 | XMS_ITS | Encounter Summary ---
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
--- OUTSIDE RECORDS SUMMARY | 2024-06-18 13:39 | XMS_ITS | Encounter Summary ---
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
== END 2024-06-18 13:35 | disposition home or self-care (01) ==
PROVIDERS: PCP Family Medicine; Visit Provider Urology
DX: R93.89 Abnormal findings on diagnostic imaging of other specified body structures (principal); C61 Malignant neoplasm of prostate
CPT/HCPCS: 78815; A9596

== ENCOUNTER 2024-07-22 12:18 | Outpatient (CLI) | payer MEDICARE, SELFPAY ==
--- NOTE | ~2024-07-22 | DEXA_ITS ---
Bone Density Report Name: KOJO DASILVA Age: 74 Sex: Male Ethnicity: White Date of : 1950 Indication: hyperparathyroidism; parental hip fracture; Referring Provider: UNKNOWN, UNKNOWN Study: Bone densitometry was performed. Exam Date: July 22, 2024 Accession number: [id number] Bone Density: Region BMD T-score Z-score Classification AP Spine(L1-L4) 1.015 -0.7 0.3 Normal Femoral Neck (Left) 0.662 -2.0 -0.7 Osteopenia Total Hip (Left) 0.920 -0.7 0.0 Normal Femoral Neck (Right) 0.763 -1.2 0.1 Osteopenia Total Hip (Right) 1.019 -0.1 0.7 Normal Total Hip Mean 0.970 -0.4 0.4 Normal World Health Organization criteria for BMD impression classify patients as: Normal (T-score at or above -1.0), Osteopenia (T-score between -1.0 and -2.5), or Osteoporosis (T-score at or below -2.5). 10-year Fracture Risk(1): Major Osteoporotic Fracture 15% Hip Fracture 9.0% Reported Risk Factors: [place] (), Neck BMD=0.662, BMI=28.7, parental fracture (1) FRAX(R) Version 3.08. Fracture probability calculated for an untreated patient. Fracture probability may be lower if the patient has received treatment. Clinical Information Provided by Patient: Parent has had a hip fracture Has used the following medications: Vitamin D, Calcium Has the following medical conditions: Hyperparathyroidism Patient maximum height was 68 Impression: The patient has low bone mass, based on the Left Femoral Neck T-score. The patient has an estimated ten-year risk of hip fracture of 9% and an estimated ten-year risk of major fracture of 15%, based on the WHO FRAX algorithm. The patient has risk factors, including: parental hip fracture. Discussion: BONE DENSITY IS LOW AT ONE OR MORE SKELETAL SITES. THE PATIENT'S BMD AND CLINICAL RISK FACTORS CONTRIBUTE TO THIS PATIENT'S INCREASED RISK OF FRACTURE. This patient's lowest T-score is low at one or more skeletal sites. It meets the World Health Organization's (WHO) criteria for ?low bone mass? (T-score between -1.0 and -2.5). The patient's 10-year risk of hip fracture as calculated by FRAX exceeds the threshold where pharmacological therapy is recommended by the National Osteoporosis Foundation (NOF). However, all treatment decisions require clinical judgment and consideration of individual patient factors, including patient preferences, comorbidities, previous drug use, risk factors not captured in the FRAX model (e.g., frailty, falls, vitamin D deficiency, increased bone turnover, interval significant decline in bone density) and possible under or overestimation of fracture risk by FRAX. The patient should follow a healthful lifestyle (good nutrition with adequate calcium and vitamin D, and appropriate weight-bearing exercise). Follow-Up: Consider repeating this study in 2 years to reassess this patient's status, or sooner if there is some new clinical indication. Reported by: VICKY on 07/22/2024 12:55:00 PM. Reviewed, dictated and finalized at location AGuicho SMITH
--- OUTSIDE RECORDS SUMMARY | 2024-07-22 13:37 | XMS_ITS | Encounter Summary ---
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
--- OUTSIDE RECORDS SUMMARY | 2024-07-22 13:37 | XMS_ITS | Encounter Summary ---
Author Organization 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
--- OUTSIDE RECORDS SUMMARY | 2024-07-22 13:37 | XMS_ITS | Encounter Summary ---
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
--- OUTSIDE RECORDS SUMMARY | 2024-07-22 13:37 | XMS_ITS | Referral Summary ---
Author Organization [facility] Address [address] [place] [address] Care Team Providers Care Director Financial Analysis Name Role Phone Jayson Hamilton MD Primary Care Provider [phone] [phone] Allergies Active Allergy Reactions Criticality Noted Date [...] (11/02/2020): Added automatically from request for surgery [id number] Positive colorectal cancer screening using Colog uard test 10/01/2018 Overview (10/01/2018): Added automatically from request for surgery [id number] Coronary arteriosclerosis in [place] artery 10/01 Overview (08/28/2017): Description: Coronary Artery Disease Hyperlipidemia 10/01/2010 Overview (08/28/2017): Description: Hyperlipidemia Hypertension 10/01/2010 Overview (08/28/2017): Description: Hypertension Immunizations Immunization Administration Dates Next Due Influenza, Quadrivalent, Rec [...] on file 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 Gender Identity Not on file Sexual Orientation Not on file Last Filed Vital Signs Vital Sign Reading Time Taken Comments Blood Pressure 148/78 12/31/2023 9:59 AM CDT Pulse 59 12/31/2023 9:59 AM CDT Temperature 36 C (96.8 F) 09/10/2022 8:46 AM CDT Respiratory Rate 16 09/10/2022 9:26 AM CDT Oxygen Saturation 96% 12/31/2023 9:59 AM CDT Inhaled Oxygen Concentration - - Weight 87.1 kg (192 lb) 12/31/2023 9:59 AM CDT Height 172.7 cm (5' 8 ) 12/31/2023 9:59 AM CDT Body Mass Index 29.19 12/31/2023 9:59 AM CDT Plan of Treatment Not on file Medical Devices Implanted Type Area Cooperage Shop Supervisor Device Identifier Shelf Expiration Date Model / Serial / Lot ArticleAlley [id number] Lens Iol Tecnis Smplcty 1-Pc Clr [place] 17.5 Diopter - [id number] - [id number] Implanted:Qty: 1 on 11/28/2020 by Marissa Henning MD at [facility] Lens Right: Lens ArticleAlley 06/24/2023 [id number] / [id number] / ArticleAlley [id number] Lens Iol Tecnis Smplcty 1-Pc Clr [place] 17.5 Diopter - [id number] - [id number] Implanted:Qty: 1 on 01/30/2021 by Marissa Henning MD at [facility] Advanced Medicine Lens Left: Eye [place]a [employer] 06/24/2023 [id number] / [id number] / 0 Stent Stent Heart Explanted Type Area Cooperage Shop Supervisor Device Identifier Shelf Expiration Date Model / Serial / Lot Chloe [employer] [id number] Lens Iol Tecnis Selamplcty 1-Pc Clr [place] 17.5 Diopter - [id number] - [id number] Explanted:Qty: 1 on 11/28/2020 by Marissa Henning MD at [facility] Lens Right: Lens Chloe [employer] 06/24/2023 [id number] / [id number] / Procedures Procedure Name Priority Date/Time Associated [...] Male Attending MD: Yolanda Varela M.D. Room: [facility] ENDOSCOPY ROOM 3 Note Status: Finalized Procedure: [...] The scope was passed under direct vision.The [id number] endoscope was introduced through the anus and [...] the bowel preparation was evaluatedusing the BBPS ([place] Bowel Preparation Scale) withscores of: Right Colon [...] Recommendation: - [facility] Attending Participation: I personally performed the entire procedure. Electronically signed by Yolanda Varela MD Yolanda Varela M.D. 09/10/2022 8:49:33 AM . Number of Addenda: 0 Note Initiated On: 09/10/2022 7:56 AM Recognized by the [place] [employer] for promoting quality in endoscopy us Yolanda Varela MD PhD ENDOSCOPY PROCEDURES Final Resu lt from Last 3 Months or Most Recently Relevant to Health Maintenance Insurance [facility]ICARE [facility] MEDICARE [facility] MEDICARE [facility] Advance Directives For more information, please contact: [phone] * Full Code (Latest Code Status on File) Date Activated Date Inactivated Comments 09/10/2022 7:11 AM 09/10/2022 1:38 PM * Full Code Date Activated Date Inactivated Comments 01/30/2021 6:34 AM 01/30/2021 2:41 PM * Full Code Date Activated Date Inactivated Comments 11/27/2020 7:57 PM 11/28/2020 12:38 PM * Full Code Date Activated Date Inactivated Comments 11/05/2018 10:58 AM 11/05/2018 5:50 PM Care Teams Director Financial Analysis Relationship Specialty Start Date End Date Jayson Hamilton MD PCP - General 12/24/16
--- OUTSIDE RECORDS SUMMARY | 2024-07-22 13:37 | XMS_ITS | Clinical Summary ---
Author Organization [facility] Address [address] [place] [address] Care Team Providers Care Unleavened Dough Mixer Name Role Phone Jayson Hamilton MD Primary Care Provider +1 [phone] Allergies Active Allergy Reactions Criticality Noted Date [...] (11/02/2020): Added automatically from request for surgery [id number] Positive colorectal cancer screening using Colog uard test 10/01/2018 Overview (10/01/2018): Added automatically from request for surgery [id number] Coronary arteriosclerosis in [place] artery 10/01 Overview (08/28/2017): Description: Coronary Artery [...] Hypertension Colon polyp Abdominal aortic aneurysm (AAA) 2016 3.3-3.5cm last checked in 2020 Family [...] on file 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 Gender Identity Not on file Sexual Orientation [...] C Screening 1950 Hepatitis B Screening 1968 Pneumococcal vaccine 65+ (1 of 1 - PCV) 2000 Zoster Vaccine (1 of 2) 2000 Well Visit 65+ 2015 Fall Risk Assessment [...] history exists Medical Devices Implanted Type Area Security Administrator Device Identifier Shelf Expiration Date Model / Serial / Lot [place] [employer] [id number] Lens Iol Tecnis Smplcty 1-Pc Clr [place] 17.5 Diopter - [id number] - [id number] Implanted:Qty: 1 on 11/28/2020 by Marissa Henning MD at [facility] Lens Right: Lens Chloe [employer] 06/24/2023 [id number] / [id number] / Chloe [employer] [id number] Lens Iol Tecnis Smplcty 1-Pc Clr [place] 17.5 Diopter - [id number] - [id number] Implanted:Qty: 1 on 01/30/2021 by Marissa Henning MD at [facility] Lens Left: Eye [employer] 06/24/2023 [id number] / [id number] / 0 Stent Stent Heart Explanted Type Area Security Administrator Device Identifier Shelf Expiration Date Model / Serial / Lot [employer] [id number] Lens Iol Tecradha Smplcty 1-Pc Clr [place] 17.5 Diopter - [id number] - [id number] Explanted:Qty: 1 on 11/28/2020 by Marissa Henning MD at [facility] Lens Right: Lens [employer] 06/24/2023 [id number] / [id number] / Procedures Procedure Name Priority Date/Time Associated [...] Male Attending MD: Yolanda Varela M.D. Room: [facility] ENDOSCOPY ROOM 3 Note [...] The scope was passed under direct vision.The [id number] endoscope was introduced through the anus and [...] the bowel preparation was evaluatedusing the BBPS ([place] Bowel Preparation Scale) withscores of: Right Colon [...] On: 09/10/2022 7:56 AM Recognized by the [place] [employer] for promoting quality in endoscopy us Yolanda Varela MD PhD ENDOSCOPY PROCEDURES Final Resu lt from Last 3 Months or Most Recently Relevant to Health Maintenance Insurance MEDICARE [facility] MEDICARE [facility] MEDICARE [facility] Advance Directives For more information, please contact: [phone] * Full Code (Latest Code Status on File) Date Activated Date Inactivated Comments 09/10/2022 7:11 AM 09/10/2022 1:38 PM * Full Code Date Activated Date Inactivated Comments 01/30/2021 6:34 AM 01/30/2021 2:41 PM * Full Code Date Activated Date Inactivated Comments 11/27/2020 7:57 PM 11/28/2020 12:38 PM * Full Code Date Activated Date Inactivated Comments 11/05/2018 10:58 AM 11/05/2018 5:50 PM Care Teams Unleavened Dough Mixer Relationship Specialty Start Date End Date Jayson Hamilton MD PCP - General 12/24/16
== END 2024-07-22 12:19 | disposition home or self-care (01) ==
PROVIDERS: PCP Family Medicine
DX: M85.89 Other specified disorders of bone density and structure, multiple sites (principal); Z79.818 Long term (current) use of other agents affecting estrogen receptors and estrogen levels
CPT/HCPCS: 77080